=== PATIENT | female | born 1950 | race Caucasian/White ===

== ENCOUNTER 2018-02-18 08:47 | Outpatient (CLI) | payer MEDICARE, BC ==
[2018-02-18 09:39] LABS: BASOPHILS % (AUTO) 0.8 % (0-1); EOSINOPHILS # (AUTO) 0.1 X10'3 (0-0.9); HEMATOCRIT 37.8 % (35.0-45.0); HEMOGLOBIN 12.8 g/dl (12.0-16.0); LYMPHOCYTES # (AUTO) 1.5 X10'3 (1.1-4.8); LYMPHOCYTES % (AUTO) 25.2 % (21-51); MEAN CORPUSCULAR HEMOGLOBIN 33.1 PG (27.0-31.0); MEAN CORPUSCULAR HGB CONC 33.9 % (33.0-36.5); MEAN CORPUSCULAR VOLUME 97.7 FL (78-98); MEAN PLATELET VOLUME 7.7 FL (7.4-10.4); MONOCYTES # (AUTO) 0.4 X10'3 (0-0.9); MONOCYTES % (AUTO) 6.5 % (2-12); NEUTROPHILS # (AUTO) 3.8 X10'3 (1.8-7.7); NEUTROPHILS % (AUTO) 65.5 % (42-75); PLATELET COUNT 212 X10'3 (140-440); RED BLOOD COUNT 3.87 X10'6 (4.20-5.60); RED CELL DISTRIBUTION WIDTH 13.7 % (11.5-14.5); WHITE BLOOD COUNT 5.8 X10'3 (4.5-11.0)
[2018-02-18 09:48] LABS: PROTHROMBIN TIME 10.5 SECONDS (9.0-12.0)
[2018-02-18 09:51] LABS: CLARITY,URINE CLEAR (Clear); COLOR,URINE YELLOW (Yellow); GLUCOSE, URINE NEGATIVE (Neg); KETONES,URINE NEGATIVE (Neg); LEUKOCYTE ESTERASE ,URINE NEGATIVE (Neg); NITRITES, URINE NEGATIVE (Neg); OCCULT BLOOD,URINE MODERATE (Neg); PROTEIN,URINE NEGATIVE (Neg); UROBILINOGEN,URINE 0.2 E.U/dL (0.2-1.0)
[2018-02-18 09:52] LABS: UA COLLECTION TYPE CLN CATCH MIDSTREAM
[2018-02-18 10:00] LABS: ALANINE AMINOTRANSFERASE 25 U/L (12-78); ALBUMIN 3.9 G/DL (3.4-5.0); ALKALINE PHOSPHATASE 104 IU/L (46-116); ANION GAP 12 (8-16); ASPARTATE AMINO TRANSFERASE 26 U/L (10-37); BILIRUBIN,TOTAL 0.5 MG/DL (0.1-1.0); BLOOD UREA NITROGEN 19 MG/DL (7-18); BUN/CREATININE RATIO 26.8 (6.6-38.0); CALCIUM 8.6 MG/DL (8.5-10.1); CHLORIDE 103 MMOL/L (99-107); CREATININE 0.71 MG/DL (0.40-0.90); GLUCOSE 82 MG/DL (70-104); POTASSIUM 3.8 MMOL/L (3.5-5.1); SODIUM 138 MMOL/L (135-145); TOTAL CARBON DIOXIDE 22.6 MMOL/L (24-32); TOTAL PROTEIN 7.9 G/DL (6.4-8.2); eGFR 82 ML/MIN
[2018-02-18 10:09] LABS: BACTERIA,URINE NONE SEEN /HPF (Neg); RBC,URINE 0-2 /HPF (0-2); SQUAMOUS EPITHELIAL CELL,UR FEW /LPF (FEW); WBC,URINE 0-4 /HPF (0-4)
== END 2018-02-18 23:59 | disposition home or self-care (01) ==
LOC: LAB 08:47
PROVIDERS: ATTEND Specialist
DX: Z01.818 Encounter for other preprocedural examination (principal); Z51.81 Encounter for therapeutic drug level monitoring; N39.0 Urinary tract infection, site not specified
CPT/HCPCS: 36415; 80053; 81001; 85025; 85610; 87070

== ENCOUNTER 2018-02-28 10:30 | Inpatient (IN) | payer MEDICARE, BC ==
[~2018-02-28] VITALS: Ht 152.4 cm; Wt 60.5 kg
[2018-02-28] MEDS ORDERED: MESA400C2 PO (10:46)
[2018-02-28] MEDS ORDERED: CRAN1POW2 PO (10:46)
[2018-02-28] MEDS ORDERED: ASCO500C15 PO (10:46)
[2018-02-28] MEDS ORDERED: LORA-641 PO (10:46)
[2018-02-28] MEDS ORDERED: CHOL10002 PO (10:46)
[2018-02-28] MEDS ORDERED: LOSA25TA96 PO (10:46)
[2018-02-28] MEDS ORDERED: PSEU-259 PO (10:46)
[2018-02-28] MEDS ORDERED: METH500T4 PO (10:46)
[2018-02-28] MEDS ORDERED: MULT-1085 PO (10:46)
[2018-02-28] MEDS ORDERED: LEVO175T2 PO (10:46)
[2018-02-28] MEDS ORDERED: LACT1CAP65 PO (10:46)
[2018-03-04] VITALS (18 sets, daily range): BP systolic 89–136; BP diastolic 56–86
[2018-03-04] MEDS ORDERED: ringers solution, lacted 1,000 ML IV SCH ×2 (05:00→08:52)
[2018-03-04] MEDS ORDERED: tranexamic acid inj. 1,500 MG in normal saline 100ml IV soln 85 ML IV ONE (05:30)
[2018-03-04] MEDS ORDERED: oxyCODONE SR 10mg (sust. release) tab PO ONE (05:30)
[2018-03-04] MEDS ORDERED: famotidine 20mg tablet PO ONE (05:30)
[2018-03-04] MEDS ORDERED: Cefazolin 2GM/100ML NS IVPB 100 ML IV ONE (05:30)
[2018-03-04] MEDS ORDERED: gabapentin 300mg capsule PO ONE (05:30)
[2018-03-04] MEDS ORDERED: acetaminophen 325mg tablet PO ONE (05:30)
[2018-03-04] MEDS ORDERED: LIDOcaine 1% (10mg/ml) 2ml vial ONE (06:19)
[2018-03-04] MEDS ORDERED: ROPIVAcaine 0.5% (5mg/ml) 30ml vial ONE (06:41)
[2018-03-04] MEDS ORDERED: bacitracin inj 150,000 UNIT in sodium chloride irrig. sol 3,000 ML IR ONE (07:00)
[2018-03-04] MEDS ORDERED: tetracaine 1% (10mg/ml) pres. free inj. ONE (07:20)
[2018-03-04] MEDS ORDERED: morphine sulfate /PF 0.5 MG/ML 10mL ampul ONE (07:22)
[2018-03-04] MEDS ORDERED: MIDAZolam 5mg/5ml vial ONE (07:22)
[2018-03-04] MEDS ORDERED: fentaNYL/PF 50MCG/1 ML 2ML syringe ONE ×2 (07:22→08:00)
[2018-03-04] MEDS ORDERED: LIDOcaine 1%/PF 5ML 10 MG/ML VIAL ONE (07:41)
[2018-03-04] MEDS ORDERED: propofol inj 20 ML IV ONE ×2 (07:41→08:57)
[2018-03-04] MEDS ORDERED: diphenhydrAMINE 50 mg/ml inj ONE (07:47)
[2018-03-04] MEDS ORDERED: ceFAZolin 1000mg inj ONE (08:26)
[2018-03-04] MEDS ORDERED: ePHEDrine 50MG/ML INJ. ONE (08:26)
[2018-03-04] MEDS ORDERED: naloxone 2mg/2ml inj 1.2 MG in normal saline 500ml IV soln 500 ML IV PRN (08:52)
[2018-03-04] MEDS ORDERED: morphine 4 MG/ML inj SYRINge IV PRN ×2 (08:55)
[2018-03-04] MEDS ORDERED: diphenhydrAMINE 50 mg/ml inj IV PRN (08:55)
[2018-03-04] MEDS ORDERED: proCHLORperazine 10 MG/2 ml inj IV PRN (08:55)
[2018-03-04] MEDS ORDERED: meperidine/PF 25mg/ml syringe IV PRN ×3 (08:55)
[2018-03-04] MEDS ORDERED: ondansetron/PF 4mg/2ml inj IV PRN ×3 (08:55→09:25)
[2018-03-04] MEDS ORDERED: oxyCODONE/APAP 5-325mg tablet PO PRN (09:25)
[2018-03-04] MEDS ORDERED: acetaminophen 325mg tablet PO PRN (09:25)
[2018-03-04] MEDS ORDERED: magnesium hydroxide 30ml (MOM) UD suspension PO PRN (09:25)
[2018-03-04] MEDS ORDERED: bisacodyl 10mg suppository rectal RC PRN (09:25)
[2018-03-04] MEDS ORDERED: diphenhydrAMINE 25mg capsule PO PRN ×2 (09:25)
[2018-03-04] MEDS ORDERED: HYDROmorphone inj. 0.5 MG/0.5 ML DISP.SYRIN IV PRN (09:25)
[2018-03-04] MEDS: potassium cl 20mEq in 1/2 NS 1,000 ML IV SCH ×3 (13:11→22:03)
[2018-03-04] MEDS: gabapentin 300mg capsule PO SCH ×2 (13:11→20:10)
[2018-03-04] MEDS: ceFAZolin 1GM/D5W- ADD-VANTAGE 50 ML IV SCH ×2 (16:36→23:30)
[2018-03-04] MEDS: ascorbic acid 500mg tablet PO SCH (20:10)
[2018-03-04] MEDS: sennosides 8.6mg tablet PO SCH (20:10)
[2018-03-05 02:00] VITALS: BP 103/52
[2018-03-05] MEDS: oxyCODONE/APAP 5-325mg tablet PO PRN ×3 (05:15→19:25)
[2018-03-05 05:39] LABS: BASOPHILS % (AUTO) 0.3 % (0-1); EOSINOPHILS # (AUTO) 0.1 X10'3 (0-0.9); EOSINOPHILS % (AUTO) 1.6 % (0-6); HEMATOCRIT 29.3 % (35.0-45.0); HEMOGLOBIN 10.2 g/dl (12.0-16.0); LYMPHOCYTES # (AUTO) 0.9 X10'3 (1.1-4.8); LYMPHOCYTES % (AUTO) 13.8 % (21-51); MEAN CORPUSCULAR HEMOGLOBIN 33.8 PG (27.0-31.0); MEAN CORPUSCULAR HGB CONC 34.7 % (33.0-36.5); MEAN CORPUSCULAR VOLUME 97.3 FL (78-98); MEAN PLATELET VOLUME 7.8 FL (7.4-10.4); MONOCYTES # (AUTO) 0.4 X10'3 (0-0.9); MONOCYTES % (AUTO) 7.1 % (2-12); NEUTROPHILS # (AUTO) 4.9 X10'3 (1.8-7.7); NEUTROPHILS % (AUTO) 77.2 % (42-75); PLATELET COUNT 162 X10'3 (140-440); RED BLOOD COUNT 3.01 X10'6 (4.20-5.60); RED CELL DISTRIBUTION WIDTH 13.1 % (11.5-14.5); WHITE BLOOD COUNT 6.3 X10'3 (4.5-11.0)
[2018-03-05 05:51] LABS: INR 1.4 INR; PROTHROMBIN TIME 14.3 SECONDS (9.0-12.0)
[2018-03-05 05:55] LABS: ANION GAP 5 (8-16); CHLORIDE 102 MMOL/L (99-107); POTASSIUM 4.1 MMOL/L (3.5-5.1); SODIUM 133 MMOL/L (135-145); TOTAL CARBON DIOXIDE 26.4 MMOL/L (24-32)
[2018-03-05 06:00] VITALS: BP 99/65
[2018-03-05] MEDS: potassium cl 20mEq in 1/2 NS 1,000 ML IV SCH ×2 (06:53→14:48)
[2018-03-05] MEDS: levoTHYROXINE 75mcg tablet PO SCH (06:55)
[2018-03-05] MEDS: ascorbic acid 500mg tablet PO SCH ×2 (06:55→19:24)
[2018-03-05] MEDS: gabapentin 300mg capsule PO SCH ×3 (06:55→19:24)
[2018-03-05] MEDS: multivitamins, therapeutics tablet PO SCH (06:58)
[2018-03-05] MEDS: losartan 50mg tablet PO SCH (06:58)
[2018-03-05 10:00] VITALS: BP 104/77
[2018-03-05] MEDS ORDERED: warfarin 5mg tablet PO ONE (10:00)
[2018-03-05] MEDS ORDERED: MESA400C2 PO (10:36)
[2018-03-05] MEDS: mesalamine 400mg delayed-release capsule PO SCH ×2 (12:22→19:24)
[2018-03-05 14:00] VITALS: BP 91/50
[2018-03-05] MEDS ORDERED: simethicone 80mg chew tab PO PRN (16:25)
[2018-03-05 18:00] VITALS: BP 90/49
[2018-03-05] MEDS: sennosides 8.6mg tablet PO SCH (19:24)
[2018-03-05] MEDS: celeCOXIB 100mg capsule PO SCH ×2 (19:24→19:26)
[2018-03-05 22:00] VITALS: BP 103/52
[2018-03-06] MEDS: potassium cl 20mEq in 1/2 NS 1,000 ML IV SCH (04:24)
[2018-03-06] MEDS: oxyCODONE/APAP 5-325mg tablet PO PRN ×3 (05:06→18:55)
[2018-03-06 05:59] LABS: BASOPHILS % (AUTO) 0.5 % (0-1); EOSINOPHILS # (AUTO) 0.1 X10'3 (0-0.9); EOSINOPHILS % (AUTO) 2.2 % (0-6); HEMATOCRIT 28.3 % (35.0-45.0); HEMOGLOBIN 9.6 g/dl (12.0-16.0); LYMPHOCYTES % (AUTO) 14.1 % (21-51); MEAN CORPUSCULAR HEMOGLOBIN 33.6 PG (27.0-31.0); MEAN CORPUSCULAR VOLUME 98.9 FL (78-98); MONOCYTES # (AUTO) 0.5 X10'3 (0-0.9); NEUTROPHILS # (AUTO) 5.2 X10'3 (1.8-7.7); NEUTROPHILS % (AUTO) 76.2 % (42-75); PLATELET COUNT 158 X10'3 (140-440); RED BLOOD COUNT 2.86 X10'6 (4.20-5.60); RED CELL DISTRIBUTION WIDTH 13.2 % (11.5-14.5); WHITE BLOOD COUNT 6.8 X10'3 (4.5-11.0)
[2018-03-06 06:00] VITALS: BP 97/59
[2018-03-06 06:04] LABS: INR 1.5 INR; PROTHROMBIN TIME 15.8 SECONDS (9.0-12.0)
[2018-03-06] MEDS: levoTHYROXINE 75mcg tablet PO SCH (07:28)
[2018-03-06] MEDS: mesalamine 400mg delayed-release capsule PO SCH ×3 (07:32→19:59)
[2018-03-06] MEDS: gabapentin 300mg capsule PO SCH ×3 (07:32→19:59)
[2018-03-06] MEDS: ascorbic acid 500mg tablet PO SCH ×2 (07:33→19:58)
[2018-03-06] MEDS: multivitamins, therapeutics tablet PO SCH (07:33)
[2018-03-06] MEDS: losartan 50mg tablet PO SCH (07:35)
[2018-03-06] MEDS: celeCOXIB 100mg capsule PO SCH ×2 (07:35→19:59)
[2018-03-06] MEDS ORDERED: acetaminophen 325mg tablet PO PRN (09:25)
[2018-03-06 10:00] VITALS: BP 96/53
[2018-03-06] MEDS ORDERED: warfarin 3mg tablet PO ONE (10:00)
[2018-03-06 18:06] VITALS: BP 99/70
[2018-03-06] MEDS: sennosides 8.6mg tablet PO SCH (19:59)
[2018-03-06 22:00] VITALS: BP 93/56
[2018-03-07] MEDS: oxyCODONE/APAP 5-325mg tablet PO PRN ×3 (01:08→10:23)
[2018-03-07 05:42] LABS: INR 1.5 INR
[2018-03-07 05:53] LABS: BASOPHILS % (AUTO) 0.2 % (0-1); EOSINOPHILS # (AUTO) 0.2 X10'3 (0-0.9); EOSINOPHILS % (AUTO) 3.7 % (0-6); HEMATOCRIT 26.6 % (35.0-45.0); LYMPHOCYTES % (AUTO) 16.4 % (21-51); MEAN CORPUSCULAR HEMOGLOBIN 33.1 PG (27.0-31.0); MEAN CORPUSCULAR HGB CONC 33.8 % (33.0-36.5); MEAN CORPUSCULAR VOLUME 98.2 FL (78-98); MEAN PLATELET VOLUME 7.8 FL (7.4-10.4); MONOCYTES # (AUTO) 0.5 X10'3 (0-0.9); MONOCYTES % (AUTO) 7.3 % (2-12); NEUTROPHILS # (AUTO) 4.6 X10'3 (1.8-7.7); NEUTROPHILS % (AUTO) 72.4 % (42-75); PLATELET COUNT 174 X10'3 (140-440); RED BLOOD COUNT 2.71 X10'6 (4.20-5.60); RED CELL DISTRIBUTION WIDTH 13.2 % (11.5-14.5); WHITE BLOOD COUNT 6.3 X10'3 (4.5-11.0)
[2018-03-07 06:00] VITALS: BP 101/61
[2018-03-07] MEDS: losartan 50mg tablet PO SCH (07:32)
[2018-03-07] MEDS: celeCOXIB 100mg capsule PO SCH (07:37)
[2018-03-07] MEDS: levoTHYROXINE 75mcg tablet PO SCH (07:37)
[2018-03-07] MEDS: multivitamins, therapeutics tablet PO SCH (07:38)
[2018-03-07] MEDS: ascorbic acid 500mg tablet PO SCH (07:38)
[2018-03-07] MEDS: mesalamine 400mg delayed-release capsule PO SCH (07:38)
[2018-03-07] MEDS: gabapentin 300mg capsule PO SCH (07:38)
[2018-03-07] MEDS ORDERED: ASPI-1264 PO (08:20)
[2018-03-07 10:00] VITALS: BP 106/63
[2018-03-07] MEDS ORDERED: warfarin 3mg tablet PO ONE (10:00)
== END 2018-03-07 11:40 | disposition home health service (06) | DRG 470 ==
LOC: PAS IN 03-04 05:26 → EDSTATUS 03-04 07:30 → ORTHO 4S 03-04 10:30
PROVIDERS: ADMIT Specialist; ATTEND Specialist
PROC: 0SR902Z Replacement of Right Hip Joint with Metal on Polyethylene Synthetic Substitute, Open Approach (ICD-10-PCS; principal; 2018-03-04 07:15)
DX: M16.11 Unilateral primary osteoarthritis, right hip (principal); D62 Acute posthemorrhagic anemia; K51.90 Ulcerative colitis, unspecified, without complications; I10 Essential (primary) hypertension; M81.0 Age-related osteoporosis without current pathological fracture; E03.9 Hypothyroidism, unspecified; K44.9 Diaphragmatic hernia without obstruction or gangrene; G25.81 Restless legs syndrome; Z88.2 Allergy status to sulfonamides; Z88.8 Allergy status to other drugs, medicaments and biological substances; Z79.899 Other long term (current) drug therapy; Z98.41 Cataract extraction status, right eye; Z98.42 Cataract extraction status, left eye
CPT/HCPCS: 36415; 73502; 80051; 84443; 85025; 85610; 86885; 86900; 86901; 97110; 97116; 97162; 97530; A6253; A6449; A6455; A7000; C1758; C1776; J0690; J1200; J2001; J2175; J2250; J2274; J2704; J2795; J3010; J3490; J7030; J7120

== ENCOUNTER 2018-09-16 05:38 | Inpatient (IN) | payer MEDICARE, BC ==
[2018-09-05 11:59] LABS: BASOPHILS % (AUTO) 0.7 % (0-1); EOSINOPHILS # (AUTO) 0.1 X10'3 (0-0.9); EOSINOPHILS % (AUTO) 1.8 % (0-6); LYMPHOCYTES # (AUTO) 1.1 X10'3 (1.1-4.8); LYMPHOCYTES % (AUTO) 19.9 % (21-51); MEAN CORPUSCULAR HEMOGLOBIN 33.4 PG (27.0-31.0); MEAN CORPUSCULAR HGB CONC 33.6 % (33.0-36.5); MEAN CORPUSCULAR VOLUME 99.3 FL (78-98); MEAN PLATELET VOLUME 7.9 FL (7.4-10.4); MONOCYTES # (AUTO) 0.3 X10'3 (0-0.9); MONOCYTES % (AUTO) 5.9 % (2-12); NEUTROPHILS # (AUTO) 4.1 X10'3 (1.8-7.7); NEUTROPHILS % (AUTO) 71.7 % (42-75); PRE OP HEMATOCRIT 36.7 % (35.0-45.0); PRE OP HEMOGLOBIN 12.3 g/dL (12.0-16.0); PRE OP PLATELET COUNT 215 X10'3 (140-440); RED BLOOD COUNT 3.69 X10'6 (4.20-5.60); RED CELL DISTRIBUTION WIDTH 13.1 % (11.5-14.5)
[2018-09-05 12:13] LABS: CLARITY,URINE CLEAR (Clear); COLOR,URINE STRAW (Yellow); GLUCOSE, URINE NEGATIVE (Neg); KETONES,URINE NEGATIVE (Neg); LEUKOCYTE ESTERASE ,URINE NEGATIVE (Neg); NITRITES, URINE NEGATIVE (Neg); OCCULT BLOOD,URINE TRACE-INTACT (Neg); PH,URINE 6.5 (4.8-8.0); PROTEIN,URINE NEGATIVE (Neg); UROBILINOGEN,URINE 0.2 E.U/dL (0.2-1.0)
[2018-09-05 12:18] LABS: UA COLLECTION TYPE NON-SPECIFIED
[2018-09-05 12:21] LABS: ALBUMIN/GLOBULIN RATIO 1.1 (1.1-1.5); ALKALINE PHOSPHATASE 104 IU/L (46-116); BLOOD UREA NITROGEN 11 MG/DL (7-18); BUN/CREATININE RATIO 16.7 (6.6-38.0); CALCIUM 8.7 MG/DL (8.5-10.1); CHLORIDE 100 MMOL/L (99-107); CREATININE 0.66 MG/DL (0.40-0.90); PRE OP ALT 23 U/L (30-65); PRE OP ANION GAP 8 (8-16); PRE OP AST 21 U/L (10-37); PRE OP BILIRUB, TOTAL 0.3 MG/DL (0.0-1.0); PRE OP GLUCOSE 88 MG/DL (70-104); PRE OP POTASSIUM 3.8 MMOL/L (3.4-5.1); PRE OP SODIUM 138 MMOL/L (135-145); TOTAL CARBON DIOXIDE 30.5 MMOL/L (24-32); TOTAL PROTEIN 7.7 G/DL (6.4-8.2); eGFR 89 ML/MIN
[2018-09-05 12:22] LABS: PRE OP PROTIME 10.2 SECONDS (9.0-12.0)
[2018-09-05 12:22] LABS: BACTERIA,URINE FEW /HPF (Neg); SQUAMOUS EPITHELIAL CELL,UR FEW /LPF (FEW); WBC,URINE 0-4 /HPF (0-4)
[2018-09-16] VITALS (16 sets, daily range): BP systolic 93–149; BP diastolic 44–89
[~2018-09-16] VITALS: Ht 152.4 cm; Wt 62.1 kg
[~2018-09-16 05:38] MED LIST: ASCO500C15 PO; BIFI1CAP PO; CALC1TAB PO; CRAN200C PO; GLUC-183 PO; LEVO175T2 PO; LORA-641 PO; LOSA25TA96 PO; MESA400C2 PO; METH500T4 PO; MULT-1156 PO; RANI150T44 PO; cefazolin/dext.iso 2gm/100 ML IV ONE; celeCOXIB 100mg capsule PO ONE; famotidine 20mg tablet PO ONE; gabapentin 300mg capsule PO ONE; metoclopramide 5 mg/ml inj IV ONE; oxyCODONE SR 10mg (sust. release) tab PO ONE; ringers solution, lacted 1,000 ML IV SCH; tranexamic acid inj. 1,500 MG in normal saline 100ml IV soln 100 ML IV ONE
[2018-09-16] MEDS ORDERED: LIDOcaine 1% (10mg/ml) 2ml vial ONE (06:19)
[2018-09-16] MEDS ORDERED: ROPIVAcaine 0.5% (5mg/ml) 30ml vial ONE (06:55)
[2018-09-16] MEDS ORDERED: bacitracin inj 150,000 UNIT in sodium chloride irrig. sol 3,000 ML IR ONE (07:00)
[2018-09-16] MEDS ORDERED: tetracaine 1% (10mg/ml) pres. free inj. ONE (07:10)
[2018-09-16] MEDS ORDERED: fentaNYL/PF 50MCG/1 ML 2ML syringe ONE ×2 (07:12→08:55)
[2018-09-16] MEDS ORDERED: morphine /PF 1mg/ml 10ml inj. ONE (07:12)
[2018-09-16] MEDS ORDERED: MIDAZolam 5mg/5ml vial ONE (07:12)
[2018-09-16] MEDS ORDERED: propofol inj 20 ML IV ONE ×2 (07:34→08:58)
[2018-09-16] MEDS ORDERED: LIDOcaine 1%/PF 5ML 10 MG/ML VIAL ONE (07:34)
[2018-09-16] MEDS ORDERED: diphenhydrAMINE 50 mg/ml inj ONE (08:01)
[2018-09-16] MEDS ORDERED: ceFAZolin 1000mg inj ONE (08:33)
[2018-09-16] MEDS ORDERED: ringers solution, lacted 1,000 ML IV SCH (08:49)
[2018-09-16] MEDS ORDERED: naloxone 2mg/2ml inj 1.2 MG in normal saline 500ml IV soln 500 ML IV PRN (08:49)
[2018-09-16] MEDS ORDERED: meperidine/PF 25mg/ml syringe IV PRN ×3 (08:50)
[2018-09-16] MEDS ORDERED: morphine 4 MG/ML inj SYRINge IV PRN ×2 (08:50)
[2018-09-16] MEDS ORDERED: diphenhydrAMINE 50 mg/ml inj IV PRN (08:50)
[2018-09-16] MEDS ORDERED: proCHLORperazine 10 MG/2 ml inj IV PRN (08:50)
[2018-09-16] MEDS ORDERED: ondansetron/PF 4mg/2ml inj IV PRN ×3 (08:50→09:20)
[2018-09-16] MEDS ORDERED: HYDROmorphone 1 mg/ml syringe IV PRN (09:20)
[2018-09-16] MEDS ORDERED: bisacodyl 10mg suppository rectal RC PRN (09:20)
[2018-09-16] MEDS ORDERED: acetaminophen 325mg tablet PO PRN (09:20)
[2018-09-16] MEDS ORDERED: magnesium hydroxide 30ml (MOM) UD suspension PO PRN (09:20)
[2018-09-16] MEDS ORDERED: diphenhydrAMINE 25mg capsule PO PRN (09:20)
--- NOTE | 2018-09-16 09:20 | NUR ---
Received from OR via BED , accompanied by Anesthesiologist DR MILLER and report given by Anesthesiolgist. PATIENT WAKING UP, DENIES PAIN, V/S WNL, NEUROVASCULAR CHECKS INTACT, 20G PIV LUE , DRESSING TO LEFT HIP CDI W/ HV AND COLD POWDER PACK AND W/ SCD ON. F/C DRAINING CLEAR YELLOW URINE. SENSATION T-10.
--- NOTE | 2018-09-16 09:46 | NUR ---
received report from bina crocker in recovery
--- NOTE | 2018-09-16 10:10 | NUR ---
pt arrived on floor in ortho bed sleepy
--- NOTE | 2018-09-16 10:10 | NUR ---
PATIENT A&OX4, DENIES PAIN, V/S WNL, NEUROVASCULAR CHECKS INTACT, 20G PIV LUE , DRESSING TO RIGHT KNEE CDI W/ HV AND COLD POWDER PACK W/ SCD ON. F/C DRAINING CLEAR YELLOW URINE. SENSATION T-11. PATIENT TAKEN TO WITH ALL BELONGINGS AND HOOKED UP TO MONITORS IN ROOM AND REPORT GIVEN TO [employer]JECT MANAGER WHO HAS TAKEN OVER PATIENT CARE.
[2018-09-16] MEDS: potassium cl 20mEq in 1/2 NS 1,000 ML IV SCH ×2 (10:42→20:34)
[2018-09-16] MEDS ORDERED: mesalamine 400mg delayed-release capsule PO SCH (13:00)
[2018-09-16] MEDS: gabapentin 300mg capsule PO SCH ×2 (13:03→20:32)
[2018-09-16] MEDS: ceFAZolin 1GM/D5W- ADD-VANTAGE 50 ML IV SCH (16:29)
--- NOTE | 2018-09-16 18:08 | NUR ---
gave report to bina barclay
--- NOTE | 2018-09-16 18:30 | NUR ---
Patient in room ORTHO 4016. I have received report from bina Deras and had the opportunity to ask questions and assume patient care.
[2018-09-16] MEDS: ascorbic acid 500mg tablet PO SCH (20:31)
[2018-09-16] MEDS: mesalamine 400mg delayed-release capsule PO SCH (20:33)
[2018-09-16] MEDS: sennosides 8.6mg tablet PO SCH (20:33)
[2018-09-17] MEDS: ceFAZolin 1GM/D5W- ADD-VANTAGE 50 ML IV SCH (00:28)
[2018-09-17 02:10] VITALS: BP 95/57
[2018-09-17] MEDS: oxyCODONE/APAP 5-325mg tablet PO PRN ×5 (04:59→21:22)
[2018-09-17] MEDS: potassium cl 20mEq in 1/2 NS 1,000 ML IV SCH ×3 (05:06→17:19)
[2018-09-17 06:00] VITALS: BP 120/74
--- NOTE | 2018-09-17 06:11 | NUR ---
RECEIVED REPORT FROM ELIZABETH ALTAMIRANO
--- NOTE | 2018-09-17 06:19 | NUR ---
Problems reprioritized. Patient report given, questions answered & plan of care reviewed with ELIZABETH SCHULTZ.
[2018-09-17 06:38] LABS: BASOPHILS % (AUTO) 0.4 % (0-1); EOSINOPHILS # (AUTO) 0.2 X10'3 (0-0.9); EOSINOPHILS % (AUTO) 2.9 % (0-6); HEMATOCRIT 29.6 % (35.0-45.0); LYMPHOCYTES # (AUTO) 0.9 X10'3 (1.1-4.8); LYMPHOCYTES % (AUTO) 13.5 % (21-51); MEAN CORPUSCULAR HEMOGLOBIN 33.2 PG (27.0-31.0); MEAN CORPUSCULAR HGB CONC 33.7 % (33.0-36.5); MEAN CORPUSCULAR VOLUME 98.3 FL (78-98); MEAN PLATELET VOLUME 7.3 FL (7.4-10.4); MONOCYTES # (AUTO) 0.4 X10'3 (0-0.9); MONOCYTES % (AUTO) 6.1 % (2-12); NEUTROPHILS # (AUTO) 4.9 X10'3 (1.8-7.7); NEUTROPHILS % (AUTO) 77.1 % (42-75); PLATELET COUNT 193 X10'3 (140-440); RED BLOOD COUNT 3.01 X10'6 (4.20-5.60); RED CELL DISTRIBUTION WIDTH 14.1 % (11.5-14.5); WHITE BLOOD COUNT 6.4 X10'3 (4.5-11.0)
[2018-09-17 06:43] LABS: INR 1.5 INR; PROTHROMBIN TIME 15.3 SECONDS (9.0-12.0)
[2018-09-17 06:44] LABS: ANION GAP 9 (8-16); CHLORIDE 104 MMOL/L (99-107); POTASSIUM 4.2 MMOL/L (3.5-5.1); SODIUM 137 MMOL/L (135-145)
[2018-09-17] MEDS: diphenhydrAMINE 25mg capsule PO PRN ×3 (06:45→21:22)
[2018-09-17] MEDS: ascorbic acid 500mg tablet PO SCH ×2 (07:20→20:14)
[2018-09-17] MEDS: gabapentin 300mg capsule PO SCH ×3 (07:21→20:14)
[2018-09-17] MEDS: multivitamins, therapeutics tablet PO SCH (07:21)
[2018-09-17] MEDS: levoTHYROXINE 75mcg tablet PO SCH (07:22)
[2018-09-17] MEDS: losartan 25mg tablet PO SCH (07:23)
[2018-09-17] MEDS: mesalamine 400mg delayed-release capsule PO SCH ×3 (07:23→20:15)
[2018-09-17 10:00] VITALS: BP 99/54
[2018-09-17] MEDS ORDERED: warfarin 3mg tablet PO ONE (10:00)
--- NOTE | 2018-09-17 11:03 | NUR ---
Joint replacement consult: Pt seen by [facility] for written/verbal high protein ed. RD reviewed high protein needs for wound healing, immune strength, high protein foods, and protein supplementation options. RD contact information provided in case of further questions. Pt declines additional proteins at this time. Hx prior ulcerative colitis per pt but no diet questions at this time. Addendum: 09/17/18 at [address] Amended: Links added.
[2018-09-17 14:00] VITALS: BP 105/67
[2018-09-17 18:00] VITALS: BP 124/74
--- NOTE | 2018-09-17 18:16 | NUR ---
gave report to bina barclay
--- NOTE | 2018-09-17 18:30 | NUR ---
Patient in room ORTHO 4016. I have received report from bina Deras and had the opportunity to ask questions and assume patient care.
[2018-09-17] MEDS: sennosides 8.6mg tablet PO SCH (20:14)
[2018-09-17 22:00] VITALS: BP 103/60
[2018-09-18] MEDS: potassium cl 20mEq in 1/2 NS 1,000 ML IV SCH (01:19)
[2018-09-18] MEDS: oxyCODONE/APAP 5-325mg tablet PO PRN ×5 (04:30→22:06)
[2018-09-18] MEDS: diphenhydrAMINE 25mg capsule PO PRN ×4 (04:31→22:07)
[2018-09-18 05:59] LABS: BASOPHILS % (AUTO) 0.3 % (0-1); EOSINOPHILS # (AUTO) 0.3 X10'3 (0-0.9); EOSINOPHILS % (AUTO) 4.2 % (0-6); HEMATOCRIT 29.9 % (35.0-45.0); HEMOGLOBIN 10.1 g/dl (12.0-16.0); LYMPHOCYTES # (AUTO) 1.1 X10'3 (1.1-4.8); LYMPHOCYTES % (AUTO) 17.9 % (21-51); MEAN CORPUSCULAR HEMOGLOBIN 33.5 PG (27.0-31.0); MEAN CORPUSCULAR VOLUME 98.5 FL (78-98); MEAN PLATELET VOLUME 7.4 FL (7.4-10.4); MONOCYTES # (AUTO) 0.5 X10'3 (0-0.9); MONOCYTES % (AUTO) 7.4 % (2-12); NEUTROPHILS # (AUTO) 4.3 X10'3 (1.8-7.7); NEUTROPHILS % (AUTO) 70.2 % (42-75); PLATELET COUNT 193 X10'3 (140-440); RED BLOOD COUNT 3.04 X10'6 (4.20-5.60); RED CELL DISTRIBUTION WIDTH 13.9 % (11.5-14.5); WHITE BLOOD COUNT 6.1 X10'3 (4.5-11.0)
[2018-09-18 06:00] VITALS: BP 129/72
--- NOTE | 2018-09-18 06:07 | NUR ---
Problems reprioritized. Patient report given, questions answered & plan of care reviewed with ELIZABETH ROSE.
--- NOTE | 2018-09-18 06:10 | NUR ---
Patient in room ORTHO 4016. I have received report from JEANIE JOHNSON and had the opportunity to ask questions and assume patient care.
[2018-09-18 06:18] LABS: INR 1.4 INR; PROTHROMBIN TIME 14.1 SECONDS (9.0-12.0)
[2018-09-18] MEDS: multivitamins, therapeutics tablet PO SCH (07:47)
[2018-09-18] MEDS: levoTHYROXINE 75mcg tablet PO SCH (07:47)
[2018-09-18] MEDS: gabapentin 300mg capsule PO SCH ×3 (07:47→20:51)
[2018-09-18] MEDS: ascorbic acid 500mg tablet PO SCH ×2 (07:47→20:51)
[2018-09-18] MEDS: mesalamine 400mg delayed-release capsule PO SCH ×3 (07:49→20:51)
[2018-09-18] MEDS: losartan 25mg tablet PO SCH (07:50)
[2018-09-18] MEDS: simethicone 80mg chew tab PO PRN ×2 (09:16→21:06)
[2018-09-18] MEDS ORDERED: acetaminophen 325mg tablet PO PRN (09:20)
[2018-09-18 10:00] VITALS: BP 103/65
[2018-09-18] MEDS ORDERED: warfarin 5mg tablet PO ONE (10:00)
[2018-09-18 18:00] VITALS: BP 106/53
--- NOTE | 2018-09-18 18:05 | NUR ---
Problems reprioritized. Patient report given, questions answered & plan of care reviewed with EVELIA JOHNSON.
--- NOTE | 2018-09-18 18:13 | NUR ---
Patient in room ORTHO 4016. I have received report from bina Dooley and had the opportunity to ask questions and assume patient care.
[2018-09-18] MEDS: sennosides 8.6mg tablet PO SCH (20:51)
[2018-09-18 22:00] VITALS: BP 104/53
[2018-09-19] MEDS: oxyCODONE/APAP 5-325mg tablet PO PRN ×3 (01:43→10:02)
[2018-09-19 06:00] VITALS: BP 126/68
--- NOTE | 2018-09-19 06:29 | NUR ---
Problems reprioritized. Patient report given, questions answered & plan of care reviewed with ELIZABETH ROSE.
[2018-09-19 06:36] LABS: BASOPHILS % (AUTO) 0.3 % (0-1); EOSINOPHILS # (AUTO) 0.3 X10'3 (0-0.9); EOSINOPHILS % (AUTO) 5.1 % (0-6); HEMATOCRIT 28.8 % (35.0-45.0); HEMOGLOBIN 9.8 g/dl (12.0-16.0); LYMPHOCYTES # (AUTO) 1.3 X10'3 (1.1-4.8); LYMPHOCYTES % (AUTO) 24.2 % (21-51); MEAN CORPUSCULAR HEMOGLOBIN 33.5 PG (27.0-31.0); MEAN CORPUSCULAR HGB CONC 33.8 % (33.0-36.5); MEAN PLATELET VOLUME 7.3 FL (7.4-10.4); MONOCYTES # (AUTO) 0.4 X10'3 (0-0.9); NEUTROPHILS # (AUTO) 3.4 X10'3 (1.8-7.7); NEUTROPHILS % (AUTO) 62.4 % (42-75); PLATELET COUNT 216 X10'3 (140-440); RED BLOOD COUNT 2.91 X10'6 (4.20-5.60); WHITE BLOOD COUNT 5.4 X10'3 (4.5-11.0)
[2018-09-19] MEDS ORDERED: ASPI-1264 PO (06:48)
[2018-09-19 06:49] LABS: INR 1.7 INR; PROTHROMBIN TIME 16.4 SECONDS (9.0-12.0)
[2018-09-19] MEDS: mesalamine 400mg delayed-release capsule PO SCH (07:58)
[2018-09-19] MEDS: simethicone 80mg chew tab PO PRN (07:59)
[2018-09-19] MEDS: ascorbic acid 500mg tablet PO SCH (07:59)
[2018-09-19] MEDS: gabapentin 300mg capsule PO SCH (07:59)
[2018-09-19] MEDS: levoTHYROXINE 75mcg tablet PO SCH (07:59)
[2018-09-19] MEDS: diphenhydrAMINE 25mg capsule PO PRN (07:59)
[2018-09-19] MEDS: multivitamins, therapeutics tablet PO SCH (07:59)
[2018-09-19] MEDS: losartan 25mg tablet PO SCH (08:00)
[2018-09-19 10:00] VITALS: BP 103/60
[2018-09-19] MEDS ORDERED: warfarin 3mg tablet PO ONE (10:00)
--- NOTE | 2018-09-19 10:15 | NUR ---
PATIENT DC HOME SAFELY WITH FAMILY, ALL BELONGINGS IN POSSESSION INCLUDING OWN HOME MEDICATIONS. PATIENT EXHIBITS UNDERSTANDING OF DISCHARGE INSTRUCTIONS.
== END 2018-09-19 10:20 | disposition home health service (06) | DRG 470 ==
LOC: PAS IN 05:38 → EDSTATUS 07:30 → ORTHO 4S 10:15
PROVIDERS: ADMIT Specialist; ATTEND Specialist
PROC: 0SRB02Z Replacement of Left Hip Joint with Metal on Polyethylene Synthetic Substitute, Open Approach (ICD-10-PCS; principal; 2018-09-16 07:10)
DX: M16.12 Unilateral primary osteoarthritis, left hip (principal); D62 Acute posthemorrhagic anemia; I10 Essential (primary) hypertension; Z96.641 Presence of right artificial hip joint; R10.30 Lower abdominal pain, unspecified; M25.752 Osteophyte, left hip; K52.9 Noninfective gastroenteritis and colitis, unspecified; G25.81 Restless legs syndrome; E03.9 Hypothyroidism, unspecified; K21.9 Gastro-esophageal reflux disease without esophagitis; Z98.42 Cataract extraction status, left eye; Z98.41 Cataract extraction status, right eye; Z79.899 Other long term (current) drug therapy; Z79.890 Hormone replacement therapy; Z88.2 Allergy status to sulfonamides; Z88.8 Allergy status to other drugs, medicaments and biological substances; Z87.440 Personal history of urinary (tract) infections
CPT/HCPCS: 36415; 73502; 80051; 80053; 81001; 84443; 85025; 85610; 85730; 86885; 86900; 86901; 87070; 93005; 97110; 97116; 97161; 97530; A6253; A6449; A6455; A7000; C1758; C1776; G0378; J0690; J1200; J2001; J2250; J2274; J2704; J2765; J2795; J3010; J3490; J7030; J7120; Q0163